=== PATIENT | male | born 1955 | race Caucasian/White ===

== ENCOUNTER → 2021-10-18 09:04 | Outpatient (CLI) | payer MEDICARE, OTHER, SELFPAY ==
--- NOTE | 2021-10-18 09:09 | RAD_ITS ---
STUDY: X-RAY CHEST REASON FOR EXAM: Male, 65 years old. Shortness of breath . Covid TECHNIQUE: PA and lateral views of the chest. COMPARISON: None. FINDINGS: Patchy infiltrates at the lung bases more prominent on the right side. There is no demonstrated pleural abnormality. Normal size heart. Normal mediastinum and fredy. Normal visualized pulmonary arteries. There is atherosclerotic tortuosity of the aortic arch and descending thoracic aorta. Normal visualized thoracic spine. Normal visualized ribs, clavicles, and shoulders. There is no demonstrated abnormality of the visualized soft tissue structures of the upper abdomen. RAD/Chest PA and Lateral IMPRESSION: Patchy bibasilar infiltrates more prominent at the right lung base. Electronically Signed: Kris Mccall MD at 9:35 EST , Service support ,
== END ==
PROVIDERS: PCP Family Medicine; Referring Provider Physician Assistant Surgical; Visit Provider Physician Assistant Surgical
DX: U07.1 COVID-19 (principal); R06.02 Shortness of breath
CPT/HCPCS: 71046

== ENCOUNTER 2021-10-18 14:29 | Outpatient (CLI) | payer MEDICARE, OTHER, SELFPAY ==
[2021-10-18 14:32] VITALS: BP 135/85; PULSE 105; RESP 18; TEMP 37.3; O2SAT 93; BMI 29.0
[2021-10-18] MEDS: 0.9% Saline Lock 10 ML Syringe IV (14:36)
[2021-10-18 15:53] VITALS: BP 132/82; PULSE 90; RESP 16; TEMP 37.5; O2SAT 95
[2021-10-18 16:27] VITALS: BP 141/96; PULSE 90; RESP 16; TEMP 37; O2SAT 96
== END 2021-10-18 16:46 | disposition home or self-care (01) ==
LOC: MS3OUT 14:29 → MS3 14:29
PROVIDERS: PCP Family Medicine; Referring Provider Nurse Practitioner Adult Health; Visit Provider Nurse Practitioner Adult Health
DX: Z23 Encounter for immunization (principal); U07.1 COVID-19
CPT/HCPCS: 71046; J7050; M0243; A4216; Q0244

== ENCOUNTER → 2024-02-12 | Outpatient (CLI) | payer MEDICARE, OTHER, SELFPAY ==
--- NOTE | 2024-02-12 07:31 | CT_ITS ---
STUDY: CT ABDOMEN AND PELVIS WITH AND WITHOUT CONTRAST REASON FOR EXAM: Male, 68 years old. GROSS HEMATURIA RADIATION DOSAGE (If Supplied By Facility): CTDIvol = ( 18.76 ) mGy, DLP = ( 2158.29 ) mGycm TECHNIQUE: Transaxial images were obtained from the dome of the diaphragm to the symphysis pubis without oral contrast. IV 100mL Isovue-[id number] was administered. Sagittal and coronal images were reconstructed. Individualized dose optimization techniques were used for this CT. COMPARISON: None. FINDINGS: There is a mild degree of bibasilar dependent atelectasis. The visualized portions of the heart are within normal limits. Normal liver. Normal gallbladder and extrahepatic biliary system. Normal spleen. Normal pancreas. Normal bilateral adrenal glands. There is a 1.5 cm cyst in the upper pole of the right kidney. There is a 1 cm cyst in the lateral aspect of the left kidney. Normal visualized stomach. Normal small intestine. There are multiple colonic diverticula consistent with diverticulosis. The appendix is visualized and appears normal. Normal abdominal aorta. Normal inferior vena cava. Normal retroperitoneum. There is a 1.1 cm x 1 cm polypoid lesion at the base of the bladder. This may represent protrusion of the enlarged prostate into the base of the bladder. There is evidence of heterogeneous enlargement of the prostate. This measures 3.4 cm x 3.7 cm. There is an umbilical hernia containing fat. The neck of the hernia measures 2.7 cm. Bilateral inguinal hernias containing fat. There are degenerative changes of the visualized lumbar spine. CT/CT Abd/Pelvis W/WO Contrast IMPRESSION: Bilateral benign-appearing renal cysts. Sigmoid diverticulosis. Heterogeneous enlargement of the prostate with indentation of the bladder base. There is evidence of a 1.1 cm x 1 cm polypoid filling defect at the base of the bladder. Endoscopic correlation recommended. Umbilical hernia and bilateral inguinal hernias containing fat. Electronically Signed: Kris Mccall MD at 9:16 EDT ,
[2024-02-12 08:03] LABS: CREATININE FINGERSTICK < 1.0 mg/dL (0.70-1.30); EGFR FINGERSTICK > 60.0000 mL/min (>60)
== END | disposition home or self-care (01) ==
PROVIDERS: PCP Family Medicine; Referring Provider Urology; Visit Provider Urology
DX: R31.0 Gross hematuria (principal)
CPT/HCPCS: 74178; Q9967